=== PATIENT | female | born 1975 | race African-American/Black ===

== ENCOUNTER 2017-02-01 13:20 | Emergency (ER) | payer SELFPAY ==
[~2017-02-01] VITALS: Ht 167.6 cm; Wt 89.0 kg
[~2017-02-01 13:20] MED LIST: NAPR550 PO; PHEN-426 PO; Z.0.NO CURRENT MEDS
[2017-02-01 13:28] VITALS: BP 137/69; PULSE 75; RESP 16; TEMP 97.5; O2SAT 100
[2017-02-01 13:44] LABS: BLOOD, URINE NEG (NEG); GLUCOSE,URINE NEG (NEG); KETONE, URINE NEG (NEG); NITRITE,URINE NEG (NEG)
[2017-02-01 13:46] LABS: METHOD OF COLLECTION CLEAN CATCH; URINE COLOR YELLOW (YELLW/STRAW)
[2017-02-01 13:48] LABS: COMMENT (UR) CULT NOT INDICATED; CULTURE IF INDICATED CULT NOT INDICATED; RBC, URINE 0-3 /hpf (0-3); WBC, URINE 0-2 /hpf (0-5)
--- NOTE | 2017-02-01 14:03 | PD ---
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 She denies any fevers, vomiting, abdominal pain, or any other symptoms. Modifying Factors: None Associated Signs & Symptoms: Vaginal discharge, dysuria Risk Factors: None PFSH Past Medical History Blood Disorders: No Diminished Hearing: No Gastrointestinal Disorders: Yes (CHRONIC UTI) Genitourinary: Yes (chronic uti) Immunizations Current: Yes Influenza Vaccination: No PNEUMOCCOCAL Vaccine (Year): 2 ?: Not LMP: 01/28/17 : 1 Para: 1 Miscarriage: 0 : 0 Past Surgical History Surgical History: No Previous Surgery Social History Alcohol Use: No Tobacco Use: No Substance Use: No Allergies-Medications (Allergen,Severity, Reaction): Coded Allergies: cephalexin (Unverified Allergy, Severe, swelling, sob, 02/01/17) Reported Meds & Prescriptions Reported Meds & Active Scripts Active Review of Systems Except as stated in HPI: all other systems reviewed are Neg Physical Exam Narrative GENERAL: Well-developed young -[place] female patient currently in no acute distress. Awake and oriented 3. SKIN: Focused skin assessment warm/dry. HEAD: Atraumatic. Normocephalic. EYES: Pupils equal and round. No scleral icterus. No injection or drainage. ENT: No nasal bleeding or discharge. Mucous membranes pink and moist. NECK: Trachea midline. No JVD. CARDIOVASCULAR: Regular rate and rhythm. No murmur appreciated. RESPIRATORY: No accessory muscle use. Clear to auscultation. Breath sounds equal bilaterally. GASTROINTESTINAL: Abdomen soft, non-tender, nondistended. Hepatic and splenic margins not palpable. GENITOURINARY: Normal external genitalia without lesions or erythema. Vaginal vault without blood but notable for whitish drainage. Cervical os was closed without drainage. No cervical motion tenderness. Uterus nontender and nonenlarged. Bilateral adnexa nontender without masses. MUSCULOSKELETAL: No obvious deformities. No clubbing. No cyanosis. No edema. NEUROLOGICAL: Awake and alert. No obvious cranial nerve deficits. Motor grossly within normal limits. Normal speech. PSYCHIATRIC: Appropriate mood and affect; insight and judgment normal. Data Data Last Documented VS Vital Signs Date Time Temp Pulse Resp B/P (MAP) Pulse Ox O2 Delivery O2 Flow Rate FiO2 02/01/17 13:28 97.5 75 16 137/69 (91) 100 Orders Orders Urinalysis - C+S If Indicated (02/01/17 13:30) Ed Urine Pregnancytest Poc (02/01/17 13:40) Gc And Chlamydia Pcr (02/01/17 14:00) Wet Prep Profile (02/01/17 14:00) Labs Laboratory Tests Test 02/01/17 13:30 02/01/17 14:35 Urine Collection Type CLEAN CATCH Urine Color YELLOW Urine Turbidity CLEAR Urine pH 5.0 Urine Specific [place] 1.027 Urine Protein NEG mg/dL Urine Glucose (UA) NEG mg/dL Urine Ketones NEG mg/dL Urine Occult Blood NEG Urine Nitrite NEG Urine Bilirubin NEG Urine Leukocyte Esterase NEG Urine RBC 0-3 /hpf Urine WBC 0-2 /hpf Urine Squamous Epithelial Cells 6-8 /hpf Urine Amorphous Sediment FEW Microscopic Urinalysis Comment CULT NOT INDICATED Clue Cells (Wet Prep) NONE SEEN Vaginal Trichomonas (Wet Prep) NONE SEEN Vaginal Yeast (Wet Prep) NONE SEEN MDM Medical Decision Making Medical Screen Exam Complete: Yes Emergency Medical Condition: Yes Medical Record Reviewed: Yes Interpretation(s) Laboratory Tests Test 02/01/17 13:30 02/01/17 14:35 Urine Squamous Epithelial Cells 6-8 /hpf (0-5) Differential Diagnosis Dysuria, vaginal discharge: UTI versus vaginitis versus cervicitis Narrative Course UA did not show significant signs of UTI. Pelvic exam shows some whitish discharge but is otherwise not indicative of underlying cervicitis. GC is pending. At this point, I suspect that the patient may have some underlying factor vaginosis considering the symptoms started a week after menses as well. My plan would be to release her with Flagyl and have her follow-up with primary care or [facility] as needed. Return for any worsening in symptoms as needed. The plan has discussed with her and she states understanding. Diagnosis Primary Impression: Vaginitis Med/Other Pt SpecificInfo: Prescription(s) given Scripts Metronidazole (Flagyl) 500 Mg Tab 500 MG PO TID for Infection for 7 Days, TAB 0 Refills Prov: Phil Moya MD 02/01/17 Disposition: 01 DISCHARGE HOME Condition: Stable Phil Moya MD Feb 01, 2017 14:03
[2017-02-01] MEDS ORDERED: METR-1 PO (14:54)
[2017-02-01 14:59] VITALS: BP 117/68; PULSE 68; RESP 16; O2SAT 99
[2017-02-01 18:06] LABS: CHLAMYDIA PCR NOT DETECTED (NOT DETECT); NEISSERIA PCR NOT DETECTED (NOT DETECT)
== END 2017-02-01 15:05 | disposition home or self-care (01) ==
LOC: PHED 13:20
DX: N76.0 Acute vaginitis (principal)
CPT/HCPCS: 81001; 84703; 87210; 87491; 87591; 99284